=== PATIENT | male | born 1980 | race Asian ===

== ENCOUNTER 2017-10-09 17:30 | Emergency (ER) | payer MEDICAID ==
[~2017-10-09] VITALS: Ht 180.3 cm; Wt 106.8 kg
[2017-10-09] MEDS ORDERED: KETOROLAC TROMETHAMINE 60 MG/2 ML VIAL IM ONE (18:45)
[2017-10-09 18:57] LABS: INFLUENZA TYPE A NEGATIVE FOR TYPE A (NEGATIVE); INFLUENZA TYPE B NEGATIVE FOR TYPE B (NEGATIVE)
[2017-10-09 21:00] VITALS: BP 137/77
== END 2017-10-09 21:17 | disposition home or self-care (01) ==
LOC: EMS 17:31
DX: J06.9 Acute upper respiratory infection, unspecified (principal); J40 Bronchitis, not specified as acute or chronic; B34.9 Viral infection, unspecified; F17.210 Nicotine dependence, cigarettes, uncomplicated
CPT/HCPCS: 71045; 87804; 93005; 96372; 99285; 99406; J1885